=== PATIENT | female | born 1995 | race Caucasian/White ===

== ENCOUNTER → 2023-02-11 13:44 | Outpatient (BNVA) | payer OTHER, SELFPAY | PROVIDERS: Visit Provider Internal Medicine | DX: S93.492A Sprain of other ligament of left ankle, initial encounter (principal); W10.8XXA Fall (on) (from) other stairs and steps, initial encounter | CPT/HCPCS: 73610; 99203 ==

== ENCOUNTER → 2023-02-18 15:31 | Outpatient (BNVA) | payer OTHER, SELFPAY | PROVIDERS: Visit Provider Internal Medicine | DX: S92.215A Nondisplaced fracture of cuboid bone of left foot, initial encounter for closed fracture (principal); W10.8XXA Fall (on) (from) other stairs and steps, initial encounter | CPT/HCPCS: 99213 ==

== ENCOUNTER → 2023-02-25 15:19 | Outpatient (BNVA) | payer OTHER, SELFPAY | PROVIDERS: Visit Provider Physician Assistant | DX: S93.401D Sprain of unspecified ligament of right ankle, subsequent encounter (principal) | CPT/HCPCS: 99202 ==

== ENCOUNTER 2023-04-08 14:12 | Outpatient (AMB) | payer OTHER, SELFPAY ==
[2023-04-08 14:14] VITALS: BMI 39.7
--- NOTE | 2023-04-08 14:14 | MHC.OFFVIS ---
Intake Vital Signs 04/08/23 14:14 Height 5 ft 1 in Weight 210 lb BMI 39.7 Intake Visit Reasons: OV- Lt foot Ankle sprain Intake Note: Miryam mei 28 year old female presents today for a follow up of left ankle W/C injury from 02/11/23.?Patient reports minimal pain with weight bearing and her pain level is 1-2 out of 10. States improvement with PT. Denies any swelling. States better out of boot than in. Allergies acetaminophen [From Percocet] Adverse Reaction (Severe, Verified 04/08/23 14:15) Constipation oxycodone [From Percocet] Adverse Reaction (Severe, Verified 04/08/23 14:15) Constipation HPI OV- Lt foot Ankle sprain HPI Details 28-year-old female who returns to the office today for a follow-up of left foot injury 02/11/23. She states she has minimal pain in her ankle/foot with weight bearing. She continues to work on physical therapy with benefits. She denies any swelling. She also reports feeling better out of the boot than wearing it. 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 [facility] Medical History Acid reflux Seasonal allergic reaction Social History Current occupational status: employed Current occupation: rt/ speach pathologist Review of Systems Const All systems reviewed & are unremarkable except as noted in HPI and below Physical Exam Vital Signs: BMI result Body Mass Index 39.7 Extrem Other: Left foot: Normal to inspection. No tenderness over the lateral aspect of the foot. No swelling or ecchymosis. NVI. Assessment & Plan Assessment & Plan (1) Left ankle sprain: Code(s): S93.402A - Sprain of unspecified ligament of left ankle, initial encounter Plan She will increase activity as tolerated continue physical therapy and trans to home exercises program. She can ween out of boot to a regular street shoe. She will contact the office if symptoms arise or worsen and will return to work without restriction. She will follow-up as needed. Patient Instructions: Scribed for Justin Vaughn PA-C, by Alec Smalls, medical librarian, on 04/08/2023 at 2:15 PM AGUILAR. Justin Nolen PA-C, have personally reviewed and agree with the information entered by the scribe. Coding Level of Care Code Est Pt Level 3 (91589) Diagnoses Left ankle sprain S93.402A
== END 2023-04-08 14:39 | disposition home or self-care (01) ==
PROVIDERS: PCP Registered Nurse; Visit Provider Physician Assistant
DX: S93.402A Sprain of unspecified ligament of left ankle, initial encounter (principal)
CPT/HCPCS: 99213

== ENCOUNTER → 2023-04-08 14:12 | Outpatient (BNVA) | payer OTHER, SELFPAY | PROVIDERS: PCP Registered Nurse; Visit Provider Physician Assistant | DX: S93.402A Sprain of unspecified ligament of left ankle, initial encounter (principal); X58.XXXA Exposure to other specified factors, initial encounter; Y93.9 Activity, unspecified; Y92.9 Unspecified place or not applicable; Y99.8 Other external cause status | CPT/HCPCS: 99212 ==

== ENCOUNTER 2023-04-24 09:00 | Outpatient (RCR) | payer OTHER, SELFPAY ==
--- NOTE | 2023-04-24 10:10 | MHC.PT.DC ---
[facility] [place] [facility] [place] [facility] [place] [facility] [address] Felipa Camarena [address] [phone] F: [phone] F: [phone] F: [phone] F: [phone] Physical Therapy Discharge Report Diagnosis: PT eval and treat: S93.401A Sprain of unspecified ligament of Right ankle, initial enounter, ROM, gentle strength, proprioceptive training signed by Angelika Vaughn PA-C date of script 02/25/23. SCRIPT has error it is her L ankle Date of Surgery: Date of Evaluation: 03/18/23 Date of Discharge: 04/24/23 Treatments to Date: 7 Cancellations to Date: No Shows to Date: Discharge Status: Achieved Goals Improved Function Independent with HEP Patient Elected to Stop Discharge Summary: HAS MET MOST PT GOALS. CONTINUES TO BE CHALLENGED WITH PROP WORK (REPORTS BALANCE ISSUES PREVIOUSLY). DIST YELLOW TB FOR THIS PROGRESSION Electronically signed by: LEONOR TRACEY PT Please sign and return to therapist. Thank you for your referral.
== END 2023-08-27 10:59 ==
LOC: HO.PTWFD 09:00
PROVIDERS: PCP Internal Medicine; Visit Provider Physician Assistant
DX: S93.401D Sprain of unspecified ligament of right ankle, subsequent encounter (principal)
CPT/HCPCS: 97110; 97161; 97530; 97535